=== PATIENT | female | born 1970 | race Hispanic/Latino ===

== ENCOUNTER 2024-01-21 07:07 | Day surgery (SDC) | payer OTHER ==
[2024-01-21] VITALS (9 sets, daily range): BP systolic 104–132; BP diastolic 51–77; PULSE 61–74; RESP 16–22; TEMP 96.6–98
[~2024-01-21] VITALS: Ht 160 cm; Wt 93.0 kg
[~2024-01-21 07:07] MED LIST: LEVO88CA4 PO
[2024-01-21] MEDS: 0.9%NACL 1000ML 1,000 ML IV ONE (10:04)
[2024-01-21] MEDS ORDERED: proPOFol 10 MG/ML 20ML VIAL IV ONE (11:11)
== END 2024-01-21 12:25 | disposition home or self-care (01) ==
LOC: DAH 07:07 → ENDO 07:07
PROVIDERS: ATTEND Internal Medicine Gastroenterology
DX: Z12.11 Encounter for screening for malignant neoplasm of colon (principal); K57.30 Diverticulosis of large intestine without perforation or abscess without bleeding; D12.0 Benign neoplasm of cecum; D12.2 Benign neoplasm of ascending colon; D12.8 Benign neoplasm of rectum; L40.4 Guttate psoriasis; E03.9 Hypothyroidism, unspecified; Z80.0 Family history of malignant neoplasm of digestive organs; Z79.899 Other long term (current) drug therapy; Z90.49 Acquired absence of other specified parts of digestive tract; Z98.890 Other specified postprocedural states; Z88.8 Allergy status to other drugs, medicaments and biological substances
CPT/HCPCS: 84703; 36415; 45380; 45385; J7030 ×2; J2704; A4615; A4215 ×2; A4223; A4222; A4221; A4663; A4606; J3490